=== PATIENT | female | born 1990 | race Two or more races ===

== ENCOUNTER 2019-03-27 21:50 | Emergency (ER) | payer OTHER ==
[~2019-03-27] VITALS: Ht 157.5 cm; Wt 83.9 kg
[2019-03-27 22:01] VITALS: Ht 157.5 cm; Wt 83.9 kg
[2019-03-27 23:20] VITALS: BP 126/75
== END 2019-03-27 23:10 | disposition home or self-care (01) ==
LOC: ED 21:50
DX: S93.401A Sprain of unspecified ligament of right ankle, initial encounter (principal); X50.1XXA Overexertion from prolonged static or awkward postures, initial encounter; Y93.89 Activity, other specified; Y92.89 Other specified places as the place of occurrence of the external cause; Y99.8 Other external cause status